=== PATIENT | female | born 1970 | race African-American/Black ===

== ENCOUNTER 2017-11-24 20:17 | Emergency (ER) | payer OTHER ==
[~2017-11-24] VITALS: Ht 162.6 cm; Wt 52.2 kg
[2017-11-24 20:54] LABS: URINE BILIRUBIN NEGATIVE (Negative); URINE BLOOD 2+ (Negative); URINE CLARITY SL CLOUDY; URINE COLOR YELLOW; URINE GLUCOSE-RANDOM* NEGATIVE (Negative); URINE KETONES TRACE (Negative); URINE PROTEIN (DIPSTICK) TRACE (Negative); URINE UROBILINOGEN 0.2 E.U./dl (0.2-1.0)
[2017-11-24 21:00] LABS: URINE LEUKOCYTES-REFLEX 2+ (Negative); URINE NITRITE-REFLEX POSITIVE (Negative)
[2017-11-24 21:03] LABS: SQUAMOUS 0-3 Few /LPF (0-3); URINE WBC-REFLEX >25 Many /HPF (0-5)
[2017-11-24 21:04] LABS: BACTERIA-REFLEX >30 Many /HPF (None Seen); CASTS None Seen /LPF (None Seen); CRYSTALS None Seen /LPF (None Seen); URINE RBC 3-10 Few /HPF (0-2)
[2017-11-24 21:27] LABS: ABSOLUTE NEUTROPHILS 12.4 thou/uL (1.4-8.2); BASOPHILS 0.4 % (0.0-2.0); EOSINOPHILS 0.1 % (0.0-3.0); HEMATOCRIT 38.1 % (37.0-47.0); HEMOGLOBIN 12.9 gm/dL (12.0-15.0); LYMPHOCYTES 6.2 % (24.0-44.0); MCH 29.5 pg (26.0-34.0); MCHC 33.9 g/dL (28.0-37.0); MCV 87.3 fL (80.0-100.0); MONOCYTES 6.5 % (1.0-8.0); PLATELET COUNT 177 thou/uL (150-400); POLYS 86.8 % (36.0-66.0); RBC 4.37 mil/uL (4.20-5.00); RDW 13.4 % (10.5-14.5); WBC 14.3 thou/uL (4.0-11.0)
[2017-11-24 21:33] LABS: CALCIUM 8.8 mg/dL (8.5-10.1); CREATININE 0.9 mg/dL (0.6-1.0); POTASSIUM 3.6 mmol/L (3.5-5.1)
[2017-11-24 21:40] LABS: ALBUMIN 3.6 g/dL (3.4-5.0); TOTAL PROTEIN 7.2 g/dL (6.4-8.2)
[2017-11-24] MEDS ORDERED: KEFLEX500 M1 PO ×2 (21:45→21:46)
[2017-11-24] MEDS ORDERED: ONDANSETRON HCL4 M2 PO (21:46)
[2017-11-24] MEDS ORDERED: NORCO 5-325 TA1 EACH PO (21:46)
[2017-11-24 22:08] VITALS: BP 105/66
== END 2017-11-24 22:09 | disposition home or self-care (01) ==
LOC: ER 20:17
PROVIDERS: Emergency Medicine
DX: N39.0 Urinary tract infection, site not specified (principal); Z91.041 Radiographic dye allergy status

== ENCOUNTER 2020-06-29 15:45 | Emergency (ER) | payer OTHER ==
[~2020-06-29] VITALS: Ht 162.6 cm; Wt 52.2 kg
[~2020-06-29 15:45] MED LIST: KEFLEX500 M1 PO; NORCO 5-325 TA1 EACH PO; ONDANSETRON HCL4 M2 PO
[2020-06-29] MEDS ORDERED: NAPROSYN500 MG PO (18:18)
[2020-06-29] MEDS ORDERED: TRAMADOL 50 MG50 MG PO (18:18)
[2020-06-29] MEDS ORDERED: MEDROLDOSEPACK PO (18:18)
[2020-06-29] MEDS ORDERED: COLACE100 MG PO (18:18)
[2020-06-29 18:40] VITALS: BP 107/68
== END 2020-06-29 18:40 | disposition home or self-care (01) ==
LOC: ER 15:45
DX: M47.22 Other spondylosis with radiculopathy, cervical region (principal); H53.8 Other visual disturbances; R51.9 Headache, unspecified; F17.210 Nicotine dependence, cigarettes, uncomplicated; Z98.51 Tubal ligation status; Z91.041 Radiographic dye allergy status